=== PATIENT | female | born 1985 | race Caucasian/White ===

== ENCOUNTER 2021-08-26 08:16 | Emergency (ER) | payer OTHER ==
[~2021-08-26] VITALS: Ht 170.2 cm; Wt 102.1 kg
[2021-08-26 09:49] LABS: EOSINOPHIL 1.9 % (0-5); HCT 42.7 % (37.0-47.0); HGB 15.4 g/dl (12.5-16.0); LYMPHOCYTE 34.9 % (15-48); MCH 31.4 pg (25.0-31.0); MCHC 36.1 g/dL (32.0-36.0); MONOCYTE 10.4 % (0-12); MPV 9.2 fL (6.0-9.5); NEUTROPHIL 51.2 % (41-80); NRBC 0; PLT 615 K/uL (150-400); RBC 4.91 M/uL (4.20-5.40); RDW 12.7 % (11.5-14.0); WBC 14.3 K/uL (4.0-10.5)
[2021-08-26 09:53] LABS: BILIRUBIN NEGATIVE (NEGATIVE); BLOOD NEGATIVE Ery/uL (NEGATIVE); CLARITY CLEAR (CLEAR); COLOR YELLOW (YELLOW); GLUCOSE (U) NORMAL (NORMAL); LEUKOCYTES NEGATIVE Leu/uL (NEGATIVE); NITRITE NEGATIVE (NEGATIVE); PROTEIN NEGATIVE (NEGATIVE); UROBILINOGEN 0.2 mg/dL (0.2-1.0)
[2021-08-26 09:55] LABS: ALBUMIN 3.6 g/dL (3.4-5.0); BILIRUBIN - TOTAL 0.4 mg/dL (0.2-1.0); BUN/CREAT RATIO (CALC) 11.1 RATIO; CREATININE 0.72 mg/dL (0.51-0.95); GLOBULIN (CALCULATION) 4.1 g/dL; POTASSIUM 3.8 mmol/L (3.5-5.1); TOTAL PROTEIN 7.7 g/dL (6.4-8.2)
== END 2021-08-26 13:56 | disposition home or self-care (01) ==
LOC: FER 08:16
PROVIDERS: Emergency Medicine
DX: R10.31 Right lower quadrant pain (principal); Z28.311 Partially vaccinated for COVID-19
CPT/HCPCS: 36415; 76830; 80053; 81003; 85025; J2270; J2405; Q9967